=== PATIENT | female | born 1975 | race Caucasian/White ===

== ENCOUNTER → 2017-08-11 10:21 | Outpatient (CLI) | payer BC, SELFPAY ==
[2017-08-11 10:51] LABS: Hemoglobin A1C% w Est Avg Glu 5.4 % (4.0-6.0)
[2017-08-11 11:23] LABS: Alanine Aminotransferase 31 IU/L (9-52); Albumin 4.2 g/dL (3.5-5.0); Albumin Globulin Ratio 1.2 (1.0-2.8); Alkaline Phosphatase 55 U/L (38-126); Aspartate Aminotransferase 45 IU/L (14-36); BUN Creatinine Ratio 13.3 (6-22); Bilirubin Total 0.4 mg/dL (0.2-1.3); Blood Urea Nitrogen 12 mg/dL (7-17); Calcium 9.1 mg/dL (8.4-10.2); Carbon Dioxide 27 mmol/L (22-32); Chloride 100 mmol/L (98-107); Cholesterol 190 mg/dL (140-199); Estimated Glomerular Filt Rate > 60.0 mL/min (>60); Globulin 3.4 g/dL (1.7-4.1); Glucose 97 mg/dL (70-100); HDL Cholesterol 73 mg/dL (40-60); HEMOLYSIS < 15 (0-50); LDL Cholesterol Calculated 102 mg/dL (<100); Potassium 4.2 mmol/L (3.4-5.1); Sodium 137 mmol/L (137-145); Total Protein 7.6 g/dL (6.3-8.2); Triglycerides 75 mg/dL (35-150)
[2017-08-11 11:38] LABS: Free T4, Direct Thyroxine 1.22 ng/dL (0.78-2.19)
[2017-08-11 11:52] LABS: Thyroid Stimulating Hormone 1.39 uIU/mL (0.47-4.68)
[2017-08-11 12:00] LABS: Creatinine Urine Random 39.8 mg/dL
[2017-08-11 12:05] LABS: Microalbumin Urine Random < 0.6 mg/dL (0-1.6)
== END ==
PROVIDERS: PCP Physician Assistant; Visit Provider Physician Assistant
DX: E88.81 Metabolic syndrome and other insulin resistance (principal); E03.9 Hypothyroidism, unspecified; I10 Essential (primary) hypertension
CPT/HCPCS: 36415; 80053; 80061; 82043; 82570; 83036; 84439; 84443

== ENCOUNTER → 2018-02-18 09:55 | Outpatient (CLI) | payer OTHER, SELFPAY ==
[2018-02-18 10:43] LABS: BUN Creatinine Ratio 12.2 (6-22); Blood Urea Nitrogen 11 mg/dL (7-17); Calcium 10.1 mg/dL (8.4-10.2); Carbon Dioxide 27 mmol/L (22-32); Chloride 101 mmol/L (98-107); Estimated Glomerular Filt Rate > 60.0 mL/min (>60); Glucose 103 mg/dL (70-100); HEMOLYSIS < 15 (0-50); Potassium 4.8 mmol/L (3.4-5.1); Sodium 138 mmol/L (137-145)
== END ==
PROVIDERS: PCP Physician Assistant; Visit Provider Physician Assistant
DX: E88.81 Metabolic syndrome and other insulin resistance (principal); I10 Essential (primary) hypertension
CPT/HCPCS: 36415; 80048

== ENCOUNTER → 2018-12-16 10:17 | Outpatient (CLI) | payer OTHER, SELFPAY ==
[2018-12-16 11:50] LABS: Alanine Aminotransferase 26 IU/L (<35); Albumin 4.1 g/dL (3.5-5.0); Albumin Globulin Ratio 1.3 (1.0-2.8); Alkaline Phosphatase 50 U/L (38-126); Aspartate Aminotransferase 30 IU/L (14-36); BUN Creatinine Ratio 11.1 (6-22); Bilirubin Total 0.5 mg/dL (0.2-1.3); Blood Urea Nitrogen 10 mg/dL (7-17); Calcium 9.2 mg/dL (8.4-10.2); Carbon Dioxide 25 mmol/L (22-32); Chloride 102 mmol/L (98-107); Cholesterol 163 mg/dL (140-199); Estimated Glomerular Filt Rate > 60.0 mL/min (>60); Globulin 3.1 g/dL (1.7-4.1); Glucose 109 mg/dL (70-100); HDL Cholesterol 59 mg/dL (40-60); HEMOLYSIS < 15 (0-50); LDL Cholesterol Calculated 88 mg/dL (<100); Potassium 4.1 mmol/L (3.4-5.1); Sodium 136 mmol/L (137-145); Total Protein 7.2 g/dL (6.3-8.2); Triglycerides 81 mg/dL (35-150)
[2018-12-16 12:25] LABS: Creatinine Urine Random 101.6 mg/dL
[2018-12-16 12:31] LABS: Microalbumi Creatinin Ratio Ur 5.9 ug/mg CR (<30); Microalbumin Urine Random < 0.6 mg/dL (0-1.6)
== END ==
PROVIDERS: PCP Physician Assistant; Visit Provider Physician Assistant
DX: Z13.220 Encounter for screening for lipoid disorders (principal); Z13.6 Encounter for screening for cardiovascular disorders; E03.9 Hypothyroidism, unspecified; I10 Essential (primary) hypertension
CPT/HCPCS: 36415; 80053; 80061; 82043; 82570; 84443

== ENCOUNTER → 2019-01-12 15:37 | Outpatient (CLI) | payer OTHER, SELFPAY ==
--- NOTE | 2019-01-12 15:38 | DI.US.S_ITS ---
PROCEDURE: US PELVIC COMPLETE INDICATIONS: MENORRHAGIA TECHNIQUE: Real-time scanning was performed of the pelvic organs, with image documentation. Additional endovaginal scanning was necessary due to incomplete visualization of the adnexal and endometrial structures by transabdominal scanning. COMPARISON: None. FINDINGS: Transabdominal scanning: Limited scanning through the kidneys shows no hydronephrosis. No pathologic free abdominal or pelvic fluid. Endovaginal scanning: Uterus: Uterus is normal in size at 9.8 x 5.1 x 4.2 cm. The endometrium measures 12.0 mm in combined thickness. Avascular echogenic focus involving the endometrial complex measuring up to 12 mm. Ovaries: Ovaries are normal bilaterally measuring 3.6 x 2.1 x 2.1 cm on the right and 3.4 x 2.2 x 2.2 cm on the left. No adnexal masses. IMPRESSION: Avascular echogenic focus within the endometrial complex measuring up to 12 mm. Findings may be related to endometrial polyp or other neoplastic processes; although retained blood products can also have a similar appearance. Recommend short term followup pelvic ultrasound in 6 weeks to assess for interval resolution. Dictated by: Bryce COLON Interpreted: Stefano Rosales MD on 01/12/2019 at 16:35 Approved by: Stefano Rosales M.D. on 01/12/2019 at 16:44
--- NOTE | 2019-01-12 15:38 | DI.MG.S_ITS ---
BILATERAL DIGITAL SCREENING MAMMOGRAM 3D/2D WITH CAD: 01/12/2019 CLINICAL: Routine screening. Comparison is made to exams dated: 03/01/2017 mammogram, 04/28/2015 mammogram, 01/30/2015 mammogram, 01/25/2013 mammogram, 04/28/2015 ultrasound biopsy, and 03/31/2011 mammogram - [facility]. There are scattered fibroglandular elements in both breasts. Current study was also evaluated with a Computer Aided Detection (CAD) system. There is a biopsy clip in the right breast. No significant masses, calcifications, or other findings are seen in either breast. There has been no significant interval change. IMPRESSION: NEGATIVE There is no mammographic evidence of malignancy. A 1 year screening mammogram is recommended. This exam was interpreted at Station ID: [id number]. NOTE: For mammograms, a report in lay terms will be sent to the patient. Approximately 15% of breast malignancies will not be visualized mammographically. In the management of a palpable breast mass, a negative mammogram must not discourage biopsy of a clinically suspicious lesion. Electronically Signed By: Devante ridley/ellie:01/12/2019 19:30:34 letter sent: Normal Exam ACR BI-RADS Category 1: Negative 3341F
[2019-01-12 16:47] LABS: Add Manual Diff / Slide Review NO; Basophils Absolute Auto 100 /uL (0-100); Basophils Percent Auto 0.7 % (0-2); Eosinophils Absolute Auto 200 /uL (0-450); Eosinophils Percent Auto 1.7 % (2-4); Hematocrit 38.4 % (36-46); Hemoglobin 12.8 g/dL (12.0-16.0); Lymphocytes Absolute Auto 2600 /uL (1100-4500); Lymphocytes Percent Auto 25.2 % (25-40); Mean Corpuscular HGB Conc 33.2 % (30-36); Mean Corpuscular Hemoglobin 29.4 PG (26-34); Mean Corpuscular Volume 88.3 fL (80-100); Monocytes Absolute Auto 800 /uL (0-900); Monocytes Percent Auto 7.8 % (3-14); Neutrophils Absolute Auto 6600 /uL (1500-7000); Neutrophils Percent Auto 64.6 % (50-75); Platelet Count 249 X10^3/uL (150-400); Red Blood Cell Count 4.35 X10^6/uL (4.0-5.2); Red Cell Distribution Width 13.7 % (11.6-14.8); White Blood Cell Count 10.2 X10^3/uL (4.5-11.0)
[2019-01-12 17:18] LABS: HEMOLYSIS < 15 (0-50); Iron 71 ug/dL (37-170)
[2019-01-12 17:29] LABS: Percent Iron Saturation 19 % (15-50); Total Iron Binding Capacity 367 ug/dL (265-497); Transferrin 306 mg/dL (206-381)
[2019-01-12 17:51] LABS: Thyroid Stimulating Hormone 1.96 uIU/mL (0.47-4.68)
[2019-01-12 17:55] LABS: Ferritin 18.9 ng/mL (6.27-137)
== END ==
PROVIDERS: PCP Physician Assistant; Visit Provider Physician Assistant
DX: Z12.31 Encounter for screening mammogram for malignant neoplasm of breast (principal); N92.4 Excessive bleeding in the premenopausal period; R00.2 Palpitations; R53.83 Other fatigue
CPT/HCPCS: 36415; 76830; 76856; 77063; 77067; 82728; 83540; 83550; 84443; 85025

== ENCOUNTER → 2019-08-15 17:09 | Outpatient (CLI) | payer OTHER, SELFPAY ==
--- NOTE | 2019-08-15 17:10 | DI.RAD.S_ITS ---
PROCEDURE: XR CHEST 2V INDICATIONS: 1 month hx intermittent chest and upper back pain TECHNIQUE: 2 views of the chest were acquired. COMPARISON: None. FINDINGS: Surgical changes and devices: None. Lungs and pleura: Lungs are clear. No pleural effusions or pneumothorax. Mediastinum: Mediastinal contours are normal. Heart size is normal. Bones and chest wall: No suspicious bony abnormalities. Soft tissues appear unremarkable. IMPRESSION: Normal for age, source of current chest pain symptoms is not seen. Dictated by: Dionisio Ribeiro M.D. on 08/16/2019 at 8:21 Approved by: Dionisio Ribeiro M.D. on 08/16/2019 at 8:21
== END ==
PROVIDERS: PCP Registered Nurse Diabetes Educator; Referring Provider Registered Nurse Diabetes Educator; Visit Provider Registered Nurse Diabetes Educator
DX: R07.89 Other chest pain (principal); M54.6 Pain in thoracic spine
CPT/HCPCS: 71046

== ENCOUNTER → 2019-12-27 07:39 | Outpatient (CLI) | payer OTHER, SELFPAY ==
[2019-12-27 08:34] LABS: Hemoglobin 12.8 g/dL (12.0-16.0); Mean Corpuscular HGB Conc 32.8 % (30-36); Mean Corpuscular Hemoglobin 28.9 PG (26-34); Mean Corpuscular Volume 88.2 fL (80-100); Platelet Count 229 X10^3/uL (150-400); Red Blood Cell Count 4.42 X10^6/uL (4.0-5.2); Red Cell Distribution Width 13.8 % (11.6-14.8); White Blood Cell Count 7.7 X10^3/uL (4.5-11.0)
[2019-12-27 08:51] LABS: Alanine Aminotransferase 29 IU/L (<35); Albumin Globulin Ratio 1.1 (1.0-2.8); Alkaline Phosphatase 55 U/L (38-126); Aspartate Aminotransferase 36 IU/L (14-36); BUN Creatinine Ratio 12.6 (6-22); Bilirubin Total 0.6 mg/dL (0.2-1.3); Blood Urea Nitrogen 12 mg/dL (7-17); Calcium 9.4 mg/dL (8.4-10.2); Carbon Dioxide 27 mmol/L (22-32); Chloride 102 mmol/L (98-107); Cholesterol 171 mg/dL (140-199); Estimated Glomerular Filt Rate > 60.0 mL/min (>60); Globulin 3.5 g/dL (1.7-4.1); Glucose 141 mg/dL (70-100); HDL Cholesterol 60 mg/dL (40-60); HEMOLYSIS < 15 (0-50); LDL Cholesterol Calculated 92 mg/dL (<100); Potassium 4.5 mmol/L (3.4-5.1); Sodium 134 mmol/L (137-145); Total Protein 7.5 g/dL (6.3-8.2); Triglycerides 93 mg/dL (35-150)
[2019-12-27 10:02] LABS: TSH w/ Reflex to FT4 2.19 uIU/mL (0.47-4.68)
== END ==
PROVIDERS: PCP Registered Nurse Diabetes Educator; Referring Provider Registered Nurse Diabetes Educator; Visit Provider Registered Nurse Diabetes Educator
DX: E03.9 Hypothyroidism, unspecified (principal); E88.81 Metabolic syndrome and other insulin resistance; I10 Essential (primary) hypertension
CPT/HCPCS: 36415; 80053; 80061; 83036; 84443; 85027

== ENCOUNTER → 2019-12-28 11:20 | Outpatient (CLI) | payer OTHER, SELFPAY ==
[2019-12-28 11:57] LABS: Glucose 114 mg/dL (70-100)
== END ==
PROVIDERS: PCP Registered Nurse Diabetes Educator; Referring Provider Registered Nurse Diabetes Educator; Visit Provider Registered Nurse Diabetes Educator
DX: R73.9 Hyperglycemia, unspecified (principal)
CPT/HCPCS: 36415; 82947

== ENCOUNTER → 2021-01-27 16:43 | Outpatient (CLI) | payer OTHER, SELFPAY ==
--- NOTE | 2021-01-27 16:46 | DI.MG.S_ITS ---
BILATERAL DIGITAL SCREENING MAMMOGRAM 3D/2D WITH CAD: 01/27/2021 CLINICAL: Routine screening. Comparison is made to exams dated: 01/12/2019 mammogram, 03/01/2017 mammogram, 04/28/2015 mammogram, and 01/30/2015 mammogram - [facility]. There are scattered fibroglandular elements in both breasts. Current study was also evaluated with a Computer Aided Detection (CAD) system. There is a biopsy clip in the right breast. No significant masses, calcifications, or other findings are seen in either breast. There has been no significant interval change. IMPRESSION: NEGATIVE There is no mammographic evidence of malignancy. A 1 year screening mammogram is recommended. This exam was interpreted at Station ID: [id number]. NOTE: For mammograms, a report in lay terms will be sent to the patient. Approximately 15% of breast malignancies will not be visualized mammographically. In the management of a palpable breast mass, a negative mammogram must not discourage biopsy of a clinically suspicious lesion. Electronically Signed By: Norris forrest/ellie:01/27/2021 17:04:00 letter sent: Normal Exam ACR BI-RADS Category 1: Negative 3341F
== END ==
PROVIDERS: PCP Registered Nurse Diabetes Educator; Referring Provider Registered Nurse Diabetes Educator; Visit Provider Registered Nurse Diabetes Educator
DX: Z12.31 Encounter for screening mammogram for malignant neoplasm of breast (principal)
CPT/HCPCS: 77063; 77067

== ENCOUNTER → 2021-04-30 07:02 | Outpatient (CLI) | payer OTHER, SELFPAY ==
[2021-04-30 07:51] LABS: Hematocrit 39.3 % (36-46); Hemoglobin 13.3 g/dL (12.0-16.0); Mean Corpuscular HGB Conc 33.9 % (30-36); Mean Corpuscular Volume 88.5 fL (80-100); Platelet Count 232 X10^3/uL (150-400); Red Blood Cell Count 4.44 X10^6/uL (4.0-5.2); Red Cell Distribution Width 13.1 % (11.6-14.8)
[2021-04-30 08:01] LABS: Hemoglobin A1C% w Est Avg Glu 5.6 % (4.0-6.0)
[2021-04-30 08:05] LABS: Alanine Aminotransferase 45 IU/L (<35); Albumin 4.1 g/dL (3.5-5.0); Albumin Globulin Ratio 1.3 (1.0-2.8); Alkaline Phosphatase 54 U/L (38-126); Aspartate Aminotransferase 55 IU/L (14-36); BUN Creatinine Ratio 10.5 (6-22); Bilirubin Total 0.6 mg/dL (0.2-1.3); Blood Urea Nitrogen 9 mg/dL (7-17); Calcium 9.5 mg/dL (8.4-10.2); Carbon Dioxide 22 mmol/L (22-32); Chloride 104 mmol/L (98-107); Cholesterol 180 mg/dL (140-199); Estimated Glomerular Filt Rate > 60.0 mL/min (>60); Globulin 3.1 g/dL (1.7-4.1); Glucose 123 mg/dL (70-100); HDL Cholesterol 65 mg/dL (40-60); HEMOLYSIS < 15 (0-50); LDL Cholesterol Calculated 98 mg/dL (<100); Potassium 4.5 mmol/L (3.4-5.1); Sodium 135 mmol/L (137-145); Total Protein 7.2 g/dL (6.3-8.2); Triglycerides 85 mg/dL (35-150)
[2021-04-30 08:35] LABS: TSH w/ Reflex to FT4 1.65 uIU/mL (0.47-4.68)
== END ==
PROVIDERS: PCP Registered Nurse Diabetes Educator; Referring Provider Registered Nurse Diabetes Educator; Visit Provider Registered Nurse Diabetes Educator
DX: E03.9 Hypothyroidism, unspecified (principal); I10 Essential (primary) hypertension; R73.01 Impaired fasting glucose
CPT/HCPCS: 36415; 80053; 80061; 83036; 84443; 85027

== ENCOUNTER → 2021-05-27 10:49 | Outpatient (CLI) | payer OTHER, SELFPAY ==
--- NOTE | 2021-05-27 10:51 | DI.US.S_ITS ---
PROCEDURE: US EXTREMITY NONVASC UPPER LT INDICATIONS: eval LEFT hand pain and mass dorsal aspect, no trauma TECHNIQUE: Real-time scanning was performed of the hand, with image documentation. COMPARISON: [facility], CR, XR HAND LT MIN 3V, 05/27/2021, 11:00. FINDINGS: At the palpable area of interest in the dorsum of the left hand, there is a complex 2.0 x 0.6 cm fluid collection with thickened morley and no internal vascularity. This tip appears to be adjacent to the extensor tendons. There is possible lower lung skin thickening. IMPRESSION: Complex fluid collection or cystic/solid mass at the palpable area of interest in the left hand, that appears to be associated with the underlying extensor tendons. Differential considerations include tenosynovitis, ganglion cyst, and other benign and malignant etiologies. Recommend MRI of the hand with and without contrast for further evaluation. Dictated by: Salinas Esteves M.D. on 05/27/2021 at 12:55 Approved by: Salinas Esteves M.D. on 05/27/2021 at 13:10
--- NOTE | 2021-05-27 10:51 | DI.RAD.S_ITS ---
PROCEDURE: XR HAND LT MIN 3V INDICATIONS: eval LEFT hand pain and mass dorsal aspect, no trauma TECHNIQUE: 3 views of the hand(s) acquired. COMPARISON: None. FINDINGS: Bones: No fractures or dislocations. Carpal bones are normally aligned. Mild osteophytosis about the 1st carpometacarpal articulation. Soft tissues: No suspicious soft tissue calcifications. IMPRESSION: No acute osseous abnormality. Dictated by: Dontae Goodson M.D. on 05/27/2021 at 12:12 Approved by: Dontae Goodson M.D. on 05/27/2021 at 12:14
== END ==
PROVIDERS: PCP Registered Nurse Diabetes Educator; Referring Provider Registered Nurse Diabetes Educator; Visit Provider Registered Nurse Diabetes Educator
DX: M79.642 Pain in left hand (principal); R22.32 Localized swelling, mass and lump, left upper limb
CPT/HCPCS: 73130; 76882

== ENCOUNTER → 2022-07-12 08:58 | Outpatient (CLI) | payer OTHER, SELFPAY ==
[2022-07-12 12:09] LABS: Alanine Aminotransferase 22 IU/L (<35); Albumin 4.1 g/dL (3.5-5.0); Alkaline Phosphatase 59 U/L (38-126); Aspartate Aminotransferase 26 IU/L (14-36); Bilirubin Total 0.6 mg/dL (0.2-1.3); Bilirubin Unconjugated 0.3 mg/dL (0.0-1.1); Globulin 3.2 g/dL (1.7-4.1); HEMOLYSIS < 15 (0-50); Total Protein 7.3 g/dL (6.3-8.2)
[2022-07-12 12:10] LABS: Albumin Globulin Ratio 1.3 (1.0-2.8)
== END ==
PROVIDERS: PCP Registered Nurse Diabetes Educator; Referring Provider Registered Nurse Diabetes Educator; Visit Provider Registered Nurse Diabetes Educator
DX: R74.8 Abnormal levels of other serum enzymes (principal)
CPT/HCPCS: 36415; 80076

== ENCOUNTER → 2022-07-13 16:49 | Outpatient (CLI) | payer OTHER, SELFPAY ==
[2022-07-13 17:27] LABS: BUN Creatinine Ratio 17.7 (6-22); Blood Urea Nitrogen 14 mg/dL (7-17); C-Reactive Protein Quant 1.3 mg/dL (<1.0); Calcium 9.4 mg/dL (8.4-10.2); Carbon Dioxide 25 mmol/L (22-32); Chloride 99 mmol/L (98-107); Estimated Glomerular Filt Rate > 60 mL/min (>60); Glucose 114 mg/dL (70-100); HEMOLYSIS < 15 (0-50); Potassium 3.9 mmol/L (3.4-5.1); Sodium 134 mmol/L (137-145); Uric Acid 6.7 mg/dL (2.5-6.2)
[2022-07-13 17:28] LABS: Rheumatoid Factor 12.3 IU/mL (<12.0)
[2022-07-13 18:06] LABS: Erythrocyte Sedimentation Rate 48 MM/HR (0-20)
[2022-07-14 19:14] LABS: CCP Antibodies IgG/IgA >250 units (0-19)
[2022-07-16 11:36] LABS: ANA Screen, IFA Negative (.)
== END ==
PROVIDERS: PCP Registered Nurse Diabetes Educator; Referring Provider Registered Nurse Diabetes Educator; Visit Provider Registered Nurse Diabetes Educator
DX: M25.531 Pain in right wrist (principal); M25.532 Pain in left wrist; M79.641 Pain in right hand; M79.642 Pain in left hand; I10 Essential (primary) hypertension
CPT/HCPCS: 36415; 80048; 84550; 85651; 86038; 86140; 86200; 86430

== ENCOUNTER → 2022-07-16 10:23 | Outpatient (CLI) | payer OTHER, SELFPAY ==
--- NOTE | 2022-07-16 10:24 | DI.RAD.S_ITS ---
PROCEDURE: XR WRIST RT MIN 3V INDICATIONS: eval bilateral hand and wrist pain TECHNIQUE: 4 views of the wrist were acquired. COMPARISON: , CR, XR HAND RT MIN 3V, 07/16/2022, 10:20. FINDINGS: Bones: No fractures or dislocations. No suspicious bony lesions. Mild osteoarthritis. Scaphoid view: Scaphoid is next I. Soft tissues: No suspicious soft tissue calcifications. IMPRESSION: 1. No acute osseous abnormality. 2. Mild osteoarthritis. Dictated by: Ranjit Harris M.D. on 07/16/2022 at 13:38 Approved by: Ranjit Harris M.D. on 07/16/2022 at 13:39
--- NOTE | 2022-07-16 10:24 | DI.RAD.S_ITS ---
PROCEDURE: XR HAND RT MIN 3V INDICATIONS: eval bilateral hand and wrist pain TECHNIQUE: 3 views of the hand(s) acquired. COMPARISON: [facility], CR, XR WRIST RT MIN 3V, 07/16/2022, 10:20. FINDINGS: Bones: No fractures or dislocations. Carpal bones are normally aligned. No suspicious bony lesions. Mild osteoarthritic changes are present. Soft tissues: No suspicious soft tissue calcifications. IMPRESSION: No acute osseous abnormality. Mild osteoarthritic. Dictated by: Ranjit Harris M.D. on 07/16/2022 at 13:39 Approved by: Ranjit Harris M.D. on 07/16/2022 at 13:40
--- NOTE | 2022-07-16 10:24 | DI.RAD.S_ITS ---
PROCEDURE: XR HAND LT MIN 3V INDICATIONS: eval bilateral hand and wrist pain TECHNIQUE: 3 views of the hand(s) acquired. COMPARISON: [facility], CR, XR HAND LT MIN 3V, 05/27/2021, 11:00. FINDINGS: Bones: No fractures or dislocations. Carpal bones are normally aligned. No suspicious bony lesions. Mild osteoarthritic changes in left hand. Soft tissues: No suspicious soft tissue calcifications. Soft tissue swelling in the dorsal aspect of the wrist/proximal hand. IMPRESSION: 1. Mild osteoarthritis. 2. Some dorsal soft tissue swelling in the wrist/proximal hand. If clinically indicated, MRI with and without contrast or a focused ultrasound can be obtained for further evaluation. Dictated by: Ranjit Harris M.D. on 07/16/2022 at 13:37 Approved by: Ranjit Harris M.D. on 07/16/2022 at 13:38
--- NOTE | 2022-07-16 10:24 | DI.RAD.S_ITS ---
PROCEDURE: XR WRIST LT MIN 3V INDICATIONS: eval bilateral hand and wrist pain TECHNIQUE: For views of the wrist were acquired. COMPARISON: [facility], CR, XR HAND LT MIN 3V, 07/16/2022, 10:20. FINDINGS: Bones: No fractures or dislocations. No suspicious bony lesions. Ulnar negative variance. Moderate osteoarthritic changes at the triscaphe joint and the 1st carpometacarpal joint. Scaphoid view: Scaphoid appears intact. Soft tissues: No suspicious soft tissue calcifications. Dorsal soft tissue swelling. IMPRESSION: 1. Moderate osteoarthritis. 2. Dorsal soft tissue swelling. Cannot rule out a mass. If clinically indicated, MRI with and without contrast or focus ultrasound can be obtained for further evaluation. Dictated by: Ranjit Harris M.D. on 07/16/2022 at 13:35 Approved by: Ranjit Harris M.D. on 07/16/2022 at 13:36
== END ==
PROVIDERS: PCP Registered Nurse Diabetes Educator; Referring Provider Registered Nurse Diabetes Educator; Visit Provider Registered Nurse Diabetes Educator
DX: M19.032 Primary osteoarthritis, left wrist (principal); M19.031 Primary osteoarthritis, right wrist; M19.042 Primary osteoarthritis, left hand; M19.041 Primary osteoarthritis, right hand; M25.531 Pain in right wrist; M25.532 Pain in left wrist; M79.641 Pain in right hand; M79.642 Pain in left hand; M79.89 Other specified soft tissue disorders
CPT/HCPCS: 73110; 73130

== ENCOUNTER → 2022-07-23 07:37 | Outpatient (CLI) | payer OTHER, SELFPAY ==
--- NOTE | 2022-07-23 | DI.MG.S_ITS ---
BILATERAL DIGITAL SCREENING MAMMOGRAM 3D/2D WITH CAD: 07/23/2022 CLINICAL: Routine screening. Family history of breast cancer. Comparison is made to exams dated: 01/27/2021 mammogram, 01/12/2019 mammogram, and 03/01/2017 mammogram - [facility]. There are scattered areas of fibroglandular density in both breasts (category b / 25%-50% glandular tissue). Current study was also evaluated with a Computer Aided Detection (CAD) system. There is a biopsy clip in the right breast. No significant masses, calcifications, or other findings are seen in either breast. There has been no significant interval change. IMPRESSION: NEGATIVE There is no mammographic evidence of malignancy. A 1 year screening mammogram is recommended. Based on the Tyrer Cuzick model (a risk assessment model) the patient's lifetime risk is 19.5% and her 10 year risk is 4.1%. According to the ACR, ACS, and NCCN guidelines, an annual breast MRI exam along with mammogram is recommended if the patient's lifetime risk is 20% or greater. This exam was interpreted at Station ID: [id number]. NOTE: For mammograms, a report in lay terms will be sent to the patient. Approximately 15% of breast malignancies will not be visualized mammographically. In the management of a palpable breast mass, a negative mammogram must not discourage biopsy of a clinically suspicious lesion. Electronically Signed By: Bernardino gandhi/ellie:07/23/2022 08:39:43 letter sent: Normal Exam ACR BI-RADS Category 1: Negative 3341F
== END ==
PROVIDERS: PCP Registered Nurse Diabetes Educator; Referring Provider Registered Nurse Diabetes Educator; Visit Provider Registered Nurse Diabetes Educator
DX: Z12.31 Encounter for screening mammogram for malignant neoplasm of breast (principal); Z80.3 Family history of malignant neoplasm of breast
CPT/HCPCS: 77063; 77067

== ENCOUNTER → 2023-10-14 15:52 | Outpatient (CLI) | payer OTHER, SELFPAY ==
--- NOTE | 2023-10-14 15:52 | DI.MG.S_ITS ---
BILATERAL DIGITAL SCREENING MAMMOGRAM 3D/2D WITH CAD: 10/14/2023 CLINICAL: Routine screening. Family history of breast cancer. Comparison is made to exams dated: 07/23/2022 mammogram, 01/27/2021 mammogram, and 01/12/2019 mammogram - [facility]. Both breasts are almost entirely fatty (category a/<25% glandular tissue). Current study was also evaluated with a Computer Aided Detection (CAD) system. There is a biopsy clip in the right breast. No significant masses, calcifications, or other findings are seen in either breast. There has been no significant interval change. IMPRESSION: NEGATIVE There is no mammographic evidence of malignancy. A 1 year screening mammogram is recommended. Based on the Tyrer Cuzick model (a risk assessment model) the patient's lifetime risk is 13.2% and her 10 year risk is 2.8%. According to the ACR, ACS, and NCCN guidelines, an annual breast MRI exam along with mammogram is recommended if the patient's lifetime risk is 20% or greater. This exam was interpreted at Station ID: [id number]. NOTE: For mammograms, a report in lay terms will be sent to the patient. Approximately 15% of breast malignancies will not be visualized mammographically. In the management of a palpable breast mass, a negative mammogram must not discourage biopsy of a clinically suspicious lesion. Electronically Signed By: Mayelin villalobos/ellie:10/17/2023 12:20:44 letter sent: Normal Exam ACR BI-RADS Category 1: Negative 3341F
== END ==
PROVIDERS: PCP Registered Nurse Diabetes Educator; Referring Provider Registered Nurse Diabetes Educator; Visit Provider Registered Nurse Diabetes Educator
DX: Z12.31 Encounter for screening mammogram for malignant neoplasm of breast (principal); Z80.3 Family history of malignant neoplasm of breast
CPT/HCPCS: 77063; 77067

== ENCOUNTER → 2023-11-04 07:34 | Outpatient (CLI) | payer OTHER, SELFPAY ==
[2023-11-04 08:07] LABS: Hematocrit 36.5 % (36-46); Hemoglobin 12.2 g/dL (12.0-16.0); Hemoglobin A1C% w Est Avg Glu 4.8 % (4.0-6.0); Mean Corpuscular HGB Conc 33.4 % (30-36); Mean Corpuscular Volume 89.7 fL (80-100); Platelet Count 211 X10^3/uL (150-400); Red Blood Cell Count 4.07 X10^6/uL (4.0-5.2); Red Cell Distribution Width 13.4 % (11.6-14.8); White Blood Cell Count 6.5 X10^3/uL (4.5-11.0)
[2023-11-04 08:25] LABS: Alanine Aminotransferase 23 IU/L (<35); Albumin Globulin Ratio 1.4 (1.0-2.8); Alkaline Phosphatase 37 U/L (38-126); Aspartate Aminotransferase 29 IU/L (14-36); BUN Creatinine Ratio 14.3 (6-22); Bilirubin Total 0.5 mg/dL (0.2-1.3); Blood Urea Nitrogen 13 mg/dL (7-17); Calcium 9.4 mg/dL (8.4-10.2); Carbon Dioxide 24 mmol/L (22-32); Chloride 104 mmol/L (98-107); Cholesterol 182 mg/dL (140-199); Estimated Glomerular Filt Rate > 60 mL/min (>60); Globulin 2.9 g/dL (1.7-4.1); Glucose 109 mg/dL (70-100); HDL Cholesterol 72 mg/dL (40-60); HEMOLYSIS < 15 (0-50); LDL Cholesterol Calculated 98 mg/dL (<100); Potassium 4.4 mmol/L (3.4-5.1); Sodium 135 mmol/L (137-145); Total Protein 6.9 g/dL (6.3-8.2); Triglycerides 62 mg/dL (35-150)
[2023-11-04 08:48] LABS: TSH w/ Reflex to FT4 1.67 uIU/mL (0.47-4.68)
== END ==
PROVIDERS: PCP Registered Nurse Diabetes Educator; Referring Provider Registered Nurse Diabetes Educator; Visit Provider Registered Nurse Diabetes Educator
DX: R73.01 Impaired fasting glucose (principal); I10 Essential (primary) hypertension; E03.9 Hypothyroidism, unspecified; E88.810 Metabolic syndrome
CPT/HCPCS: 36415; 80053; 80061; 83036; 84443; 85027

== ENCOUNTER → 2024-02-17 14:49 | Outpatient (CLI) | payer OTHER, SELFPAY ==
--- NOTE | 2024-02-17 14:50 | DI.US.S_ITS ---
PROCEDURE: US PELVIC COMPLETE INDICATIONS: DUB TECHNIQUE: Real-time scanning was performed of the pelvic organs, with image documentation. Additional endovaginal scanning was necessary due to incomplete visualization of the adnexal and endometrial structures by transabdominal scanning. COMPARISON: [facility], US, US PELVIC COMPLETE, 02/09/2019, 15:16. [facility], US, US PELVIC COMPLETE, 01/12/2019, 16:03. FINDINGS: Uterus: Uterus is anteverted and normal in size at 4.8 x 6.0 x 8.1 cm. The myometrium is homogeneous. The endometrium measures 12.4 mm combined thickness. There is, however, may rounded masslike structure within the endometrial space measuring up to 1.5 x 1.1 x 1.5 cm that is near isoechoic to adjacent endometrium. Ovaries: The right ovary measures 5.4 x 4.2 x 4.7 cm, and there is a moderately large cyst that appears simple measuring up to 3.6 x 3.8 x 3.9 cm, with overall ovarian calculated ovarian volume of 55 cc. The left ovary measures 3.4 x 3.5 x 3.1 cm, with a moderately complex left ovarian cyst containing low level internal echoes measuring 3.0 x 2.7 x 2.1 cm with a combined calculated ovarian volume of 19 cc. Less than 12 follicles can be seen in each ovary. No definite solid adnexal masses are seen. Other: No pathologic free abdominal or pelvic fluid. IMPRESSION: Recommend follow-up contrast-enhanced pelvic MRI scanning given the complexity of findings discussed above. There is a suspicious masslike lesion measuring up to 1.5 cm within the endometrial space and also a complex left ovarian cyst measuring up to 3 cm and a relatively large right ovarian cyst measuring up to almost 4 cm. We strive to produce accurate, complete, and clear reports of imaging services. To assist us in improving patient care, this report was composed using standard report templates and voice recognition software. Therefore, it may contain abnormal punctuation, insertions and/or omissions. Occasional wrong-word or sound-alike substitutions may occur. Though we review the report and make efforts to correct it, we do recommend that the report be read carefully in proper context to recognize any text inaccuracies. Dictated by: Dionisio Ribeiro M.D. on 02/18/2024 at 7:09 Approved by: Dionisio Ribeiro M.D. on 02/18/2024 at 7:17
== END ==
PROVIDERS: PCP Registered Nurse Diabetes Educator; Referring Provider Registered Nurse Diabetes Educator; Visit Provider Registered Nurse Diabetes Educator
DX: N93.9 Abnormal uterine and vaginal bleeding, unspecified (principal); N85.9 Noninflammatory disorder of uterus, unspecified; N83.292 Other ovarian cyst, left side; N83.201 Unspecified ovarian cyst, right side
CPT/HCPCS: 76856

== ENCOUNTER → 2024-02-24 19:05 | Outpatient (CLI) | payer OTHER, SELFPAY ==
--- NOTE | 2024-02-24 19:08 | DI.MRI.S_ITS ---
PROCEDURE: MR PELVIS WO/W CON INDICATIONS: further eval findings on pelvic US TECHNIQUE: Coronal HASTE, sagittal breath-hold T2 FSE; axial T1 FSE with and without fat saturation through the pelvis. Optional long- and short-axis uterine nonbreath-hold T2 FSE through the uterus. Sagittal or axial dynamic VIBE during administration of contrast. Post-contrast axial or coronal VIBE/2-D FLASH with fat saturation from the iliac crests to the symphysis. Optional diffusion weighted imaging and ADC may be performed. COMPARISON: [facility], US, US PELVIC COMPLETE, 02/17/2024, 14:57. FINDINGS: Image quality: Diagnostic Lower abdomen: No small bowel obstruction. No pathologic ascites. Bladder: Unremarkable Reproductive organs: There are nabothian cysts. In the posterior uterine endometrium, there is a 2.1 cm lesion with internal cystic changes. There is diffusion signal. The junctional zone is not well delineated a part from the lesion. The endometrium measures 1.2 cm. In the right ovary, there is a 5 cm simple appearing cyst. In the left ovary, multiloculated cystic lesion is seen measuring 3.1 x 3.2 cm. There is some intrinsic T1 signal within some of the locules. Rectum: Unremarkable Vessels and lymph nodes: No aneurysmal vessel. No pathologic lymph nodes by size criteria. Pelvic wall: Unremarkable Bones: No suspicious osseous enhancement. IMPRESSION: There is endometrial mass lesion with cystic changes and diffusion signal. Differential includes endometrial neoplasm versus focal adenomyosis or atypical submucosal fibroid. Given reported findings of dysfunctional uterine bleeding on ultrasound, direct visualization and possible sampling is recommended. Simple appearing 5 cm right ovarian simple cyst. Left ovary multiloculated 3.2 x 3.1 cm cyst with intrinsic T1 signal, which could represent a small endometrioma versus hemorrhagic cyst. MR appearance favors the former. Dictated by: Amauri Estrada M.D. on 02/24/2024 at 20:35 Approved by: Amauri Estrada M.D. on 02/24/2024 at 20:51
== END ==
LOC: MRI 19:07
PROVIDERS: PCP Registered Nurse Diabetes Educator; Referring Provider Registered Nurse Diabetes Educator; Visit Provider Registered Nurse Diabetes Educator
DX: N85.8 Other specified noninflammatory disorders of uterus (principal); N83.202 Unspecified ovarian cyst, left side; N83.291 Other ovarian cyst, right side; N93.9 Abnormal uterine and vaginal bleeding, unspecified
CPT/HCPCS: 72197; A9579

== ENCOUNTER 2024-04-12 11:16 | Day surgery (SDC) | payer OTHER, SELFPAY ==
[2024-03-30 13:53] VITALS: BMI 45.6
[2024-04-12] VITALS (10 sets, daily range): BP systolic 118–158; BP diastolic 60–99; PULSE 61–86; RESP 14–24; TEMP 35.6–37.1; O2SAT 91–100; BMI 46.2
--- NOTE | 2024-04-12 | PATH_ITS ---
[facility] Accession Number: [id number] No. of containers..01 Tissue . 01 Material submitted: . uterus - CERVIX,UTERUS,BILATERAL FALLOPIAN TUBES . 01 Diagnosis: CERVIX, UTERUS, BILATERAL FALLOPIAN TUBES, HYSTERECTOMY AND BILATRAL SALPINGECTOMY (WEIGHT 123 GRAMS): Cervix with no significant histomorphologic abnormality. Endocervix with no significant histomorphologic abnormality. Weakly proliferative endometrium; negative for endometrioid intraepithelial neoplasia or malignancy; one benign endometrial polyp (30 mm); negative for significant atypia. Myometrium with adenomyosis. Uterine serosa with no significiant abnormality. [place] fallopian tube with benign paratubal cysts, complete cross-sections; negative for significant atypia. Longer fallopian tube, complete cross-sections; negative for significant atypia. [facility] 04/17/2024 0706 Local . 01 Electronically signed: . Tawny Block MD, Pathologist NPI- [id number] . 01 Gross description: . Received in formalin with two patient identifiers and cervix, uterus, bilateral fallopian tubes, is an intact uterus (123 grams, 9.9 cm superior to inferior, 6.5 cm medial to lateral, 4.8 cm anterior to posterior) with attached cervix (3.1 x 2.8 cm), and two detached, unoriented, fimbriated fallopian tubes (3.9 x 0.7 cm and 2.7 x 0.8 cm) with no additional adnexa. . The ectocervix is pink-ruiz and wrinkled with a patulous os, 1.1 cm in diameter. The serosa is ruiz to violaceous with no hemorrhage or adhesion identified. The anterior margin is inked blue while the posterior margin is inked black. . The endocervical canal has ruiz herringbone mucosa and measures 3.5 cm in length. The endometrial cavity is 3.6 cm from cornu to cornu, and 5.1 mm in length, with pink-red lush endometrium that averages 0.2 cm thick with a large red polypoid soft tissue fragment measuring 3.0 x 0.7 x 0.6 cm. The myometrium is pink-ruiz and trabecular with multiple fairly well defined white nodules up to 0.4 cm in greatest dimension, as well as multiple pinpoint cavities up to 0.2 cm greatest dimension. No additional lesions are identified. The myometrium measures up to 2.4 cm in maximum thickness. Both tubes have ruiz, roughened serosa with the shorter tube having two cystic structures up to 0.6 cm in greatest dimension filled with clear serous fluid. The lumen are stellate and unremarkable. . Email Developer sections are submitted as follows: A1: Anterior cervix. A2: Posterior cervix. A3: Anterior full thickness section with nodules and pinpoint areas. A4: Posterior full thickness section with nodules and pinpoint areas. A5: Polypoid endometrial lesion. A6: Longer fallopian tube to include one-half of bisected fimbria and cross sections. A7: [place] fallopian tube to include one-half of bisected fimbria and cross sections. ([id number]) /MRV 04/13/2024 1902 Local . 01 Pathologist provided ICD-10: N93.9 . 01 CPT . 355115 Specimen Comment: A courtesy copy of this report has been sent to [facility] Performed at: [address] [facility], [place], [place] [id number] MD Norris Hughes MD Phone: [phone]
[2024-04-12] MEDS: SCOPOLAMINE 1 PATCH TOP (11:41)
[2024-04-12] MEDS: LACTATED RINGERS 1,000 ML 42 ML IV (11:41)
[2024-04-12] MEDS: ACETAMINOPHEN IV 1,000 MG/100 ML VIAL 400 MG IV (12:10)
--- NOTE | 2024-04-12 12:58 | PM.PREOP ---
Pre-operative Note Interval Note History & Physical reviewed/Exam performed by Physician: Yes Changes to H&P: No H&P completed within 30 days and has changed as indicated here:: see H&P from 03/27/24
[2024-04-12] MEDS: CEFAZOLIN 2 GM/100 ML PREMIX 100 ML IV (13:24)
[2024-04-12] MEDS: CEFAZOLIN VIAL 1 GM in SODIUM CHLORIDE 0.9% 100 ML IV (13:24)
[2024-04-12] MEDS: BUPIVACAINE 0.25% W/ EPI 30 ML VIAL INJ (13:40)
--- NOTE | 2024-04-12 15:52 | P.OP_ITS ---
Operative Date/Time/Diagnoses Date of procedure: 04/12/24 Time of procedure: 13:30 Pre-op diagnosis: Abnormal uterine bleeding Ovarian cyst Post-op diagnosis: same Procedure & Clinicians Procedure: Total laparoscopic hysterectomy Bilateral salpingectomy Lysis of adhesions Cystoscopy Same procedure as scheduled: Yes Indications: 48yo F with abnormal uterine bleeding, desiring definitive management. She also was noted to have a left ovarian cyst on imaging, thus she was counseled and consented for TLH/BS/possible ovarian cystectomy. Surgeon: My Brizuela Technical Developer: Mike Vyas Anesthesia Type: General Operative Notes Findings: Omental adhesions noted to the anterior abdominal wall. Normal appearing uterus and bilateral ovaries. Her left ovary was noted to have several simple appearing cysts. Normal appearing bilateral fallopian tube fimbria (s/p tubal ligation). Normal appearing liver edge and gallbladder. Normal appendix. Specimen(s): other (uterus, cervix, bilateral fallopian tubes) Applied: catheter Estimated Blood Loss (mL): 100 Blood products transfused: none Procedure in detail: The risks, benefits, indications and alternatives of the procedure were reviewed with the patient and informed consent was obtained. The pt was taken to the operating room where general anesthesia was obtained without difficulty. The pt was then placed in the low lithotomy position using Eliseo Stirrups and arms were tucked with padding. Sequential compression devices were placed bilaterally for VTE prophylaxis. She was then prepped and draped in the sterile fashion and a Padilla catheter was placed. She received 3g Ancef for surgical prophylaxis. A V-care uterine manipulator was placed through the cervix into the uterus for uterine manipulation. Attention was then turned to the patient?s abdomen were a 5mm skin incision was made in the inferior aspect of the umbilicus after injecting 0.25% Marcaine. A Veress needle was introduced through the base of the umbilicus, with entry pressure <5 mmHg. A pneumoperitoneum was obtained with several liters of CO2 gas, maximum pressure of 15 mmHg. A 5mm trocar and sleeve were then carefully introduced into the peritoneal cavity under direct visualization at a 90-degree angle while tenting up the abdominal wall. Intra- peritoneal placement was confirmed under direct visualization with the laparoscope. Upon entry into the peritoneal cavity, structures immediately below the incision were inspected and found to be free of injury. A survey of the patient's abdomen and pelvis was notable for the above findings. Three additional 5mm port sites, one in the right lateral side and two in the left lateral side, were placed under direct laparoscopic guidance. The Powerseal device was then used to lyse the adhesions between the omentum and the anterior abdominal wall. The Powerseal was then used to clamp, cut, and ligate the left fallopian tube fimbria. This was then removed via a lateral port. The left ovary had several small simple appearing cysts, thus decision was made to leave the ovary intact with no intervention. The left utero-ovarian and round ligaments were then clamped, cut, and ligated. The anterior broad ligament was then incised along the bladder reflection and the bladder was dissected off the lower uterine segment until endopelvic fascia was visualized. The left uterine artery was then identified, skeletonized, and ligated on the left. The uterosacral ligament and cardinal ligament were transected on the left. Attention was then directed to the right side, where the same procedure was done to clamp, cut, and ligate the right fallopian tube fimbria and right side of the uterus. The anterior colpotomy was then made using the Bovie L-hook and continued circumferentially inferior to the cervix using the colpotomy ring as a guide. The entire cervix and uterus was then successfully amputated and delivered through the vagina. The 0 Stratafix suture was then introduced into the abdominal cavity via the vagina. The vaginal cuff was then closed laparoscopically with the barbed suture in a running fashion. The suture needle was removed via the lateral port under direct visualization. The padilla catheter was then removed, and the cystoscope was then primed and advanced through the urethra and into the bladder. Both ureteral orifices were identified and bilateral efflux of urine was visualized. A survey of the bladder did not show defects or visible suture. The cystoscope was then removed and the bladder was drained. The padilla catheter was replaced. Attention was then returned to the abdomen, where the pelvis was then irrigated. Excellent hemostasis was noted. The pneumoperitoneum was then released, and the remaining ports were removed. The skin incisions were then reapproximated using 4-0 monocryl suture in a subcuticular fashion and covered with Dermabond. At the completion of the case the sponge and needle counts were correct x 2, and all instruments were confirmed to be removed from the vagina. The patient was taken to the PACU in stable condition. Complications: none Post-operative Condition: stable Disposition: PACU Plan for aftercare: Discharge to home in the morning of 04/13/24.
[2024-04-12] MEDS: HYDROMORPHONE 1 MG INJ IV ×4 (16:00→16:14)
[2024-04-12] MEDS: LORazepam 2 MG/ML INJ 0.25 MG IV (16:17)
[2024-04-12] MEDS: KETOROLAC 30 MG/ML VIAL IV ×2 (17:43→23:24)
[2024-04-12] MEDS: ACETAMINOPHEN 325 MG TABLET 650 MG PO (17:43)
[2024-04-12] MEDS: ONDANSETRON 4 MG/2 ML INJ IV (17:50)
[2024-04-12] MEDS: DOCUSATE 100 MG CAPSULE 200 MG PO (21:00)
[2024-04-12] MEDS: METFORMIN XR 500 MG TABLET PO (21:00)
[2024-04-12] MEDS: OXYCODONE IR 5 MG TABLET PO (21:01)
[2024-04-13] MEDS: KETOROLAC 30 MG/ML VIAL IV (04:14)
[2024-04-13 04:27] VITALS: BP 125/71; PULSE 71; RESP 18; TEMP 36.7; O2SAT 96
[2024-04-13] MEDS: LEVOTHYROXINE 125 MCG TABLET PO (06:23)
[2024-04-13] MEDS: ACETAMINOPHEN 325 MG TABLET 650 MG PO ×2 (06:23→10:38)
[2024-04-13 08:00] VITALS: BP 104/69; PULSE 68; RESP 20; TEMP 36.7; O2SAT 99
--- NOTE | 2024-04-13 09:09 | P.DS_ITS ---
History of Present Illness History of Present Illness Date Patient Seen: 04/13/24 Time Patient Seen: 09:10 Chief complaint: OPB Narrative: 48-year-old female with AUB/HMB and ovarian cysts, here for preop for planned TLH/BS/possible unilateral oophorectomy or cystectomy, possible fulguration of endometriosis. She has no new complaints or concerns today. We reviewed her recent negative EMBx. She reports having had heavy and painful cycles for most of her life. She did use a Mirena IUD in the past, however this spontaneously expelled about 2 years into it. She then used progesterone only pills for several years, given her strong family history of breast cancer. She continued to have irregular bleeding with a progesterone pills, and stopped these 5 months ago. The last few months she has had 10-11 days cycles with heavy flow requiring an overnight pad that she changes every 1-3 hours, with lots of clots. She has also had spotting in between her periods. Her LMP is 02/27/24, then her previous was 02/01/24. She also reports occasional one-sided pelvic pain, which is worse during her periods. She also reports some urinary frequency during her periods as well. She reports a family history of endometriosis. After consideration of all options, she has decided to move forward with total laparoscopic hysterectomy and bilateral salpingectomy. She presents now for her scheduled surgery. Discharge Providers Provider Date of admission: 04/12/2024 Discharge Date: 04/13/24 Primary care physician: RENNY Burns Discharge provider: Mike Vyas MD Summary Hospital Course Discharge Diagnosis: Abnormal uterine bleeding s/p Total laparoscopic hysterectomy w/ Bilateral salpingectomy, Lysis of adhesions, Cystoscopy Hospital Course: Zari was admitted on 04/12/2024 and underwent an uneventful total laparoscopic hysterectomy with bilateral salpingectomy, lysis of adhesions, and cystoscopy. Full details of the procedure well summarized on Dr. My Brizuela' operative note of that date. Following surgery the patient has done extremely well with prompt return of bowel and bladder function, she is ambulating independently, tolerating regular diet, and her pain is well controlled with oral pain medications. She will be discharged at this time to home in an afebrile normotensive condition after counseling regarding precautionary symptoms, limitations of activity, medications, and plans for follow-up which will be in 2 weeks. Medications at discharge will include resumption of all preadmission medications as well as oxycodone previously prescribed by Dr. Brizuela for her patient. Status at Discharge Cognitive/behavioral status at discharge: oriented Functional status at discharge: independent ambulation Overall status at discharge: patient is progressing back to baseline Time Spent with Patient Time spent: Less than 30 minutes Exam Vital Signs (past 8 hours): - 04/13/24 04:27 04/13/24 08:00 Temperature 98.0 F 98.1 F Pulse Rate 71 68 Respiratory Rate 18 20 Blood Pressure 125/71 104/69 Pulse Oximetry 96 99 Oxygen Flow Rate 0 0 Oxygen Delivery Method Room Air Oxygen Flow Rate 0 Const General: cooperative and comfortable Nutritional Appearance: average body habitus Orientation: alert and oriented x3 HENMT Head: normal to inspection, atraumatic and abrasion Ears: hearing grossly normal bilaterally Face and sinus: face symmetric Eyes General: appearance normal, both eyes and all related structures Conjunctivae: conjunctivae normal Sclera: sclerae normal EOM: EOM intact bilaterally Neck Neck: normal visual inspection Resp Effort & Inspection: normal respiratory effort and able to speak in complete sentences Auscultation: clear to auscultation bilaterally Cardio Rate: regular rate Rhythm: regular rhythm Heart Sounds: S1 normal, S2 normal and no murmurs GI Inspection: normal to inspection and incision (Laparoscopy port incisions clean and dry) Palpation: soft, no hepatosplenomegaly and tender (Mild, diffuse postsurgical tenderness) External Female Exam: other (No significant bleeding noted) Extrem General: no calf tenderness Psych Appearance: grossly normal Mental Status: mental status grossly normal Speech and Movement: speech and movement normal Mood: congruent mood Affect: normal affect Attitude: cooperative Thought Process: normal Thought Content: normal Judgment: judgment good [facility] Medical History (Updated 03/30/24 @ 13:59 by Natalie Jauregui RN) BMI 45.0-49.9, adult Obesity, Class III, BMI 40-49.9 (morbid obesity) Lumbosacral radiculopathy Seropositive rheumatoid arthritis Impaired fasting blood sugar Atypical chest pain Polycystic ovaries (Unknown) Bipolar disorder (Unknown) Hypertension (Unknown) Hypothyroidism (Unknown) Surgical History (Updated 03/27/24 @ 09:18 by My Brizuela DO) History of bilateral tubal ligation (~06/2013) Status post delivery Family History Mother Hypertension Breast cancer Father No problems noted. Social History household members: spouse Smoking Status: Never smoker second hand exposure: No alcohol intake: current substance use type: does not use Discharge Assessment & Plan Assessment and Plan Assessment: Abnormal uterine bleeding s/p Total laparoscopic hysterectomy w/ Bilateral salpingectomy, Lysis of adhesions, Cystoscopy Plan of Treatment: Routine postoperative care with follow-up planned for 2 weeks after surgery Discharge Plan Discharge Plan Patient Disposition: Home Provider Discharge Comment: Take ibuprofen 600mg every 6hrs and acetaminophen 650mg every 6hrs for pain. Use oxycodone 5mg every 4hrs as needed for severe pain. Avoid placing anything in the vagina for 6 weeks. Avoid lifting greater than 20lbs for at least 4 weeks. You should expect some light vaginal spotting, but please call our office if you experience heavy bleeding requiring a pad. Discharge orders & Medications Discharge Orders: Discharge (Order); Ordered 04/13/24 Ordered By: Mike Vyas Prescriptions: Continued hydroxychloroquine 200 mg tablet 200 mg PO BID levothyroxine 125 mcg tablet 125 mcg PO DAILY Qty: 90 3RF lisinopril-hydrochlorothiazide 20-25 mg tablet 1 tab PO DAILY Qty: 90 3RF bupropion HCl 300 mg tablet extended release 24 hr 300 mg PO QDAY Qty: 90 3RF lamotrigine 100 mg tablet 100 mg PO DAILY Qty: 90 3RF metformin 500 mg tablet extended release 24 hr 500 mg PO BID Qty: 180 3RF oxycodone 5 mg tablet 5 mg PO Q6H PRN (Reason: pain) Qty: 10 0RF sulfasalazine 500 mg tablet 1,000 mg PO BID methocarbamol 750 mg tablet 750 mg PO PRN PRN (Reason: Pain, Moderate) prednisone 10 mg tablet 10 mg PO PRN PRN (Reason: Pain (Scale Score 1-3)) gabapentin 600 mg tablet 600 mg PO TID Qty: 90 3RF meloxicam 15 mg tablet 15 mg PO PRN PRN (Reason: Pain (Scale Score 1-3)) Follow up/Referrals: My Brizuela DO [Physician] - Diet/Activity/Treatments Diet: Diet as Tolerated Activity: As tolerated. Skin/Wound/Dressing Care Skin care: You may shower normally. Report to your healthcare provider any signs of infection, such as:: chills, fever, increased pain, unusual drainage and unusual redness Dressing: You have surgical glue on your incisions that will peel off in 1 week. Visit Report/Discharge Packet Instructions: DI for Hysterectomy, DI for Laparoscopy, DI for Prescription Opioid Use Stand Alone Forms: Surgery Discharge Print Language: Welsh Discharge Data Primary Care Provider: Stephen Phillips Attending Provider: My Brizuela PROFEE Charge Codes Discharge inpatient/observation: [id number]
--- NOTE | 2024-04-13 09:23 | CM.DANOTE ---
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 Plans to return home w/family to assist throughout her recovery. No barriers identified at this time to patient's safe discharge home w/family to assist; close outpatient f/u recommended. CM team will plan to follow clinical course closely in case any DC needs or concerns arise. JERAD Adkins Discharge Planning/Care Management CM Discharge Assessment Start: 04/13/24 09:22 Freq: Status: Active Protocol: Document 04/13/24 09:22 KYM (Rec: 04/13/24 09:23 KYM [id number]) Discharge Planning Assessment Assigned Employee Communications Coordinator JERAD Calles DPOA/Assigned Designee Name Bernardino Griffin, spouse Contact Information [phone] Advance Directives? No Advance Directives on File No History Provided By Patient,Medical Record Prior Living Arrangements House Household Members spouse Type of transporation used prior to Drives own vehicle admit Independent with ADL's Yes Is patient alert and oriented? Yes Barriers to Discharge No Discharge Plan Home Transportation Arrangement Family Referrals Initiated None needed
[2024-04-13] MEDS: lamoTRIgine 100 MG TABLET PO (09:26)
[2024-04-13] MEDS: OXYCODONE IR 5 MG TABLET PO (09:26)
[2024-04-13] MEDS: hydroCHLOROthiazide 25 MG TABLET PO (09:26)
[2024-04-13] MEDS: DOCUSATE 100 MG CAPSULE 200 MG PO (09:27)
[2024-04-13 09:28] VITALS: BP 122/76; PULSE 83
[2024-04-13] MEDS: lisinopriL 20 MG TABLET PO (09:28)
[2024-04-13] MEDS: METFORMIN XR 500 MG TABLET PO (09:28)
[2024-04-13] MEDS: buPROPion XL 150 MG TAB 300 MG PO (09:28)
[2024-04-13] MEDS: IBUPROFEN 600 MG TABLET PO (10:37)
--- NOTE | 2024-04-13 10:42 | PC.NURSE ---
Pt agreeable to discharge. IV discontinued, bladder scan revealed 0mL. Pt reports scant amounts of spotting. Education provided to pt on s/s of infection, when to report to PCP and/or ED, and medications including pain medications, constipation prevention. Pt dressed, wheeled via w/c w/ PCT and spouse to private vehicle at approximately 1045
== END 2024-04-13 10:45 | disposition home or self-care (01) ==
LOC: OR 11:17 → AC 11:17
PROVIDERS: PCP Registered Nurse Diabetes Educator; Referring Provider Student in an Organized Health Care Education/Training Program; Visit Provider Student in an Organized Health Care Education/Training Program
PROC: 0UT94ZZ Resection of Uterus, Percutaneous Endoscopic Approach (ICD-10-PCS; CPT 58571; principal; 2024-04-12 12:45)
DX: N93.9 Abnormal uterine and vaginal bleeding, unspecified (principal); Z84.2 Family history of other diseases of the genitourinary system; K66.0 Peritoneal adhesions (postprocedural) (postinfection); N83.292 Other ovarian cyst, left side; N84.0 Polyp of corpus uteri; N83.8 Other noninflammatory disorders of ovary, fallopian tube and broad ligament
CPT/HCPCS: 58571; 81025; 82962; J0134; J0690; J1100; J1171; J1885; J2060; J2250; J2405; J2704; J3010; J3490

== ENCOUNTER → 2024-04-24 10:16 | Outpatient (CLI) | payer OTHER, SELFPAY ==
[2024-04-12 16:55] VITALS: BMI 46.2
[2024-04-24 11:03] LABS: Appearance Urine UA CLEAR; Bilirubin Urine UA NEGATIVE (NEGATIVE); Color Urine UA YELLOW; Glucose Urine UA NEGATIVE (Negative); Ketones Urine UA NEGATIVE (NEGATIVE); Leukocyte Esterase Urine UA NEGATIVE (NEGATIVE); Nitrite Urine UA NEGATIVE (Negative); Occult Blood Urine UA NEGATIVE (Negative); Protein Urine UA NEGATIVE (Negative); Urobilinogen Urine UA 0.2 E.U./dL (0.2)
[2024-04-24 11:11] LABS: Bacteria Urine Few (2-10); Culture Indicated Urine Cult Not Indicated; RBC Urine None Seen (0-5/HPF); Squamous Epithelial Cell Urine 0-1 /HPF (0-5/HPF); Urine Volume 10mL (spun); WBC Urine None Seen (0-5/HPF)
== END ==
PROVIDERS: PCP Registered Nurse Diabetes Educator; Referring Provider Student in an Organized Health Care Education/Training Program; Visit Provider Student in an Organized Health Care Education/Training Program
DX: R35.0 Frequency of micturition (principal); R30.0 Dysuria
CPT/HCPCS: 81001

== ENCOUNTER → 2025-01-21 15:46 | Outpatient (CLI) | payer OTHER, SELFPAY ==
[2024-04-12 16:55] VITALS: BMI 46.2
--- NOTE | 2025-01-21 15:46 | DI.MG.S_ITS ---
MM screening mammo BI: 01/21/2025. BI-RADS: 2 CLINICAL: 49-year old female for bilateral screening mammogram. Tyrer-Cuzick lifetime risk of 27.4%. Current reported family history of breast cancer: mother and maternal aunt. The patient had a prior left breast biopsy. PRIOR EXAMS 10/14/2023, 07/23/2022, 01/27/2021, 01/12/2019. MAMMOGRAPHY TECHNIQUE: 2D and 3D (tomosynthesis) digital mammographic views obtained, with additional images as needed for full coverage. Current study was also evaluated with a Computer Aided Detection (CAD) system. DENSITY B. There are scattered areas of fibroglandular density. MAMMOGRAPHY FINDINGS Right: Biopsy marker present on the right. There are no suspicious masses, calcifications, or other findings in the breast. Left: No suspicious mass, asymmetry, microcalcification, or other abnormality seen. IMPRESSION: Right * No evidence of malignancy with benign findings. Left * No evidence of malignancy. RECOMMENDATIONS Bilateral * According to the Tyrer-Cuzick Risk Assessment Model, based on the information provided your patient has a greater than 20% lifetime risk for developing breast cancer. Consider supplemental screening with breast MRI and participation in a high risk screening program. * Annual screening mammography. OVERALL ASSESSMENT CATEGORY BI-RADS-2: Benign. The [employer] recommends annual screening mammography beginning at age 40 for women with average risk of breast cancer. ELECTRONICALLY SIGNED: Alisatir Carias M.D. on 01/22/2025 at 11:38:43 AM PT Interpreting Station ID: [id number]
== END ==
LOC: MAMMO 15:46
PROVIDERS: PCP Registered Nurse Diabetes Educator; Referring Provider Registered Nurse Diabetes Educator; Visit Provider Registered Nurse Diabetes Educator
DX: Z12.31 Encounter for screening mammogram for malignant neoplasm of breast (principal); Z80.3 Family history of malignant neoplasm of breast
CPT/HCPCS: 77063; 77067